=== PATIENT | female | born 1990 | race Caucasian/White ===

== ENCOUNTER 2025-04-25 08:49 | Outpatient (CLI) | payer OTHER, SELFPAY ==
--- NOTE | 2025-04-25 09:06 | XR_ITS ---
WS: [id number] XR lumbar spine 2-3V* [id number] REASON FOR EXAM: ARTHRITIS FINDINGS: Relatively normal lumbar spine curvatures. No significant vertebral body abnormality. Limbus vertebrae at L4. Bilateral spondylolysis with 6 mm of anterolisthesis L5 on S1 and moderate narrowing of the disc space. XR/XR lumbar spine 2-3V* [id number] IMPRESSION: Spondylolysis and spondylolisthesis at L5-S1 as above.
== END 2025-04-25 08:50 | disposition home or self-care (01) ==
LOC: RAD 08:56
PROVIDERS: PCP Nurse Practitioner; Visit Provider Chiropractor
DX: M43.16 Spondylolisthesis, lumbar region (principal); M13.80 Other specified arthritis, unspecified site; M46.96 Unspecified inflammatory spondylopathy, lumbar region
CPT/HCPCS: 72100